=== PATIENT | female | born 2000 | race African-American/Black ===

== ENCOUNTER 2023-02-24 00:18 | Observation (INO) | payer OTHER, SELFPAY ==
--- NOTE | 2023-02-24 00:18 | OBADM ---
This patient, Eli Gutierres, admitted to the OB room Labor/Delivery/Recovery 106 for observation. Patient/family oriented to hospital policies and general routines including ID bracelet, bed and alarms, visiting hours, pain management, procedures, bathroom and other care routines, personal items, smoking policy, room service/diet, and visiting hours. Patient/Family are encouraged to report perceived risks to care and to ask questions if they do not understand what they are told or what they should do.
[2023-02-24 00:40] VITALS: BMI 34.2
--- NOTE | 2023-03-23 18:10 | PM.OBTRLD ---
OB - Triage/Final Diagnosis Visit Information Comments/Additional reasons for admission: I have assessed the risk for this patient, Eli Gutierres, and determined that she would benefit from observation care. Final Diagnosis (1) contractions: Code(s): O47.00 - False labor before 37 completed weeks of gestation, unspecified trimester Status: Acute
== END 2023-02-24 02:30 | disposition home or self-care (01) ==
PROVIDERS: Admitting Provider Obstetrics & Gynecology; Visit Provider Obstetrics & Gynecology
DX: O47.1 False labor at or after 37 completed weeks of gestation (principal); Z3A.37 37 weeks gestation of pregnancy
CPT/HCPCS: 84112; G0378; G0379

== ENCOUNTER 2023-03-04 16:06 | Inpatient (IN) | payer OTHER, SELFPAY ==
[2023-03-04] VITALS (11 sets, daily range): BP systolic 124–175; BP diastolic 63–121; PULSE 77–100; RESP 18; TEMP 36.6–36.7; BMI 35.9
[2023-03-04] MEDS: OXYTOCIN 30 UNITS/NS 500 ML 30 UNITS/500 ML BAG 125 UNITS IV CONT (16:34)
--- NOTE | 2023-03-04 16:43 | WPDOBADMIT ---
Obstetrics - Admit Note Admission Note: 22 y/o arrived via ambulance and was found to be completely dilated. SROM occoured shortly after my arrival. record reviewed. No pertinent additions to the history and/or any subsequent changes in the physical findings that are not consistent with the expected course of the were found. Additions to the history and/or subsequent changes in the physical findings follow. None.
--- NOTE | 2023-03-04 16:43 | PM.OBPRVD ---
OB - Delivery Note Procedure Delivery date: 03/04/23 Procedure: Events: Intrauterine Growth Restriction (IUGR) Induction method: None Delivery monitor: None Route of delivery: Episiotomy description: None Laceration Description: None Anesthesia type: None Narrative: Arrived via ambulance and was completely dilated. SROM occurred shortly after arrival. Pushed effectively and delivered spontaneously. Mother and baby in stable condition. Cord gasses collected and handed off to staff. Baby Date of : 03/04/23 Time of : 16:29 Weeks of gestation at delivery: 38 presentation: vertex position: Left Occiput Anterior Placenta delivery description: Spontaneous Cord Vessel Description: 3 Vessels
[2023-03-04] MEDS: IBUPROFEN 600 MG TABLET PO (17:10)
[2023-03-04 17:13] LABS: Basophils Percent Auto 0.2 % (0.2-1.2); Eosinophils Percent Auto 0.1 % (0-4.4); Hemoglobin 10.6 g/dL (12.0-15.0); Immature Granulocyte Absolute 0.08 K/mm3 (0.00-0.031); Immature Granulocyte Percent A 0.5 % (0-0.5); Lymphocytes Absolute Auto 1.34 K/mm3 (0.9-3.2); Lymphocytes Percent Auto 9.1 % (18.3-44.2); Mean Corpuscular HGB Conc 32.1 g/dl (32-36); Mean Corpuscular Hemoglobin 26.1 pg (26-34); Mean Corpuscular Volume 81.3 fl (80-100); Mean Platelet Volume 10.4 fl (7.4-10.4); Monocytes Absolute Auto 1.4 K/mm3 (0.1-0.6); Monocytes Percent Auto 9.5 % (2.6-8.5); Neutrophils Absolute Auto 11.8 K/mm3 (1.3-6.7); Neutrophils Percent Auto 80.6 % (45.5-73.1); Platelet Count Result 338 k/mm3 (150-375); Red Blood Count 4.06 M/mm3 (4.2-5.4); Red Cell Distribution Width 14.8 % (11.5-14.5); White Blood Count 14.7 K/mm3 (4.5-10.0)
--- NOTE | 2023-03-04 18:55 | OBPPTRN ---
Patient transferred to post room #283 via W/C. Support person present. Oriented to unit, room, information board, rooming in, admission packet and security measures. Patient verbalizes understanding.
[2023-03-05] MEDS: IBUPROFEN 600 MG TABLET PO ×3 (02:55→23:05)
[2023-03-05 05:37] LABS: Hematocrit 30.2 % (37.0-47.0); Hemoglobin 9.8 g/dL (12.0-15.0)
[2023-03-05 07:40] VITALS: BP 120/66; PULSE 89; RESP 17; TEMP 37; O2SAT 99
--- NOTE | 2023-03-05 07:40 | P.PNOB_ITS ---
OB - PN: Subj Subjective Date/time seen: 03/05/23 07:40 s/p vaginal delivery day 1 OB - PN: Obj Data Labs 03/05/23 04:12 Labs: Laboratory Results - last 24 hr 03/04/23 03/04/23 03/05/23 17:03 17:03 04:12 WBC 14.7 H RBC 4.06 L Hgb 10.6 L 9.8 L Hct 33.0 L 30.2 L MCV 81.3 MCH 26.1 MCHC 32.1 RDW 14.8 H Plt Count 338 MPV 10.4 Immature Gran % (Auto) 0.5 Neut % (Auto) 80.6 H Lymph % (Auto) 9.[address] [place] % (Auto) 9.5 H Eos % (Auto) 0.1 Baso % (Auto) 0.2 Lymph # (Auto) 1.34 [place] # (Auto) 1.4 H Eos # (Auto) 0.0 Baso # (Auto) 0.0 Abs Immat Gran (auto) 0.08 H Absolute Neuts (auto) 11.8 H Absolute Nucleated RBC 0.0 Nucleated RBC % 0.0 Blood Type AB Positive Antibody Screen Negative OB - PN A/P Plan day: 1 Plan: routine care Time Spent With Patient Time: Total time spent is greater than 50% in coordination of care (as documented) at patient's floor/unit and/or counseling patient: Review of Systems Review of Systems: All systems reviewed & are unremarkable except as noted in HPI and below Exam Const: General: cooperative and healthy appearing
[2023-03-05 08:00] VITALS: PULSE 89; RESP 17; O2SAT 99
[2023-03-05] MEDS: DOCUSATE SODIUM 100 MG CAPSULE PO ×2 (09:21→17:39)
[2023-03-05] MEDS: POLYSACCHARIDE IRON COMPLEX 150 MG CAPSULE PO ×2 (09:21→17:39)
--- NOTE | 2023-03-05 09:26 | PC.NURSE ---
On 03/05/23, the student, Radames Townsend, provided care and completed [facility] documentation on this patient. I have reviewed the student's documentation and agree with the findings.
[2023-03-05 12:23] VITALS: BP 126/73; PULSE 75; RESP 16; TEMP 36.7; O2SAT 99
[2023-03-05 12:33] LABS: Rapid Plasma Reagin Non-Reactive (NonReactive)
[2023-03-05 18:45] VITALS: BP 123/79; PULSE 86; RESP 16; TEMP 36.9; O2SAT 98
[2023-03-06 07:25] VITALS: BP 120/62; PULSE 90; RESP 16; TEMP 37.2; O2SAT 98
--- NOTE | 2023-03-06 08:18 | PM.OBPNVD ---
OB - PN: Subj Subjective Date/time seen: 03/06/23 08:18 Patient comments: no complaints baby status: doing well OB - PN: Obj Data Labs 03/05/23 04:12 Labs: Laboratory Results - last 24 hr 03/04/23 17:03 RPR Non-reactive OB - PN A/P Plan day: 2 Plan: routine care and discharge home (F/U in 4 weeks) Time Spent With Patient Time: Total time spent is greater than 50% in coordination of care (as documented) at patient's floor/unit and/or counseling patient: Time with patient: less than 15 minutes Review of Systems Review of Systems: All systems reviewed & are unremarkable except as noted in HPI and below Exam Narrative: Fundus firm and vaginal flow controlled. No lower ext redness, warmth, or edema. Negative homans. Const: General: comfortable Chest: Breast/axilla inspection: normal inspection of the breasts Resp: Effort & Inspection: normal respiratory effort Cardio: Rate: regular rate GI: GI Palp: Yes Soft to palpation Psych: Appearance: grossly normal Affect: normal affect Attitude: cooperative Thought content: Yes Normal thought content present Judgement: Good judgement present (Psych)
--- NOTE | 2023-03-06 08:20 | PM.OBDSVD ---
DS: Admitting Diagnosis Discharge Date 03/06/23 Admitting Diagnosis Labor OB - DS: Summary OB Procedures : None OB Procedures Intrapartum: Spontaneous Vag Delivery OB Procedures: : None Time Spent with Patient Time attestation: Total time spent providing and/or coordinating discharge services: DS: Data Data Completed and Pending Pending studies at discharge: Pending at discharge 03/04/23 16:35 Surgical [PTH] Routine Labs on day of discharge: Labs from last 24 hours 03/04/23 17:03 RPR Non-reactive Discharge Plan Discharge Attending physician on discharge: Mariluz Zayas Discharging Clinician: Mariluz Zayas Patient Disposition: Home, Self-Care Activity: pelvic rest Diet: as tolerated Patient Instructions: Antibiotic Form Stand Alone Forms: General Discharge Information Follow-up/Referrals: Mariluz Zayas CNM [Primary Care Provider] - Discharge Medications: New polysaccharide iron complex 150 mg iron Capsule 150 mg PO DAILY Qty: 30 0RF Continued PNV [id number] fumarate-FA [] 28 mg iron- 800 mcg Tablet 1 tablet PO DAILY Date of admission: 03/04/23 16:06 Primary Care Provider: Mariluz Zayas Admitting Provider: Kerrie Price Attending physician on admission: Kerrie Price Condition: Stable
[2023-03-06] MEDS: POLYSACCHARIDE IRON COMPLEX 150 MG CAPSULE PO (08:40)
[2023-03-06] MEDS: DOCUSATE SODIUM 100 MG CAPSULE PO (08:41)
[2023-03-06] MEDS: IBUPROFEN 600 MG TABLET PO (08:41)
--- NOTE | 2023-03-06 12:30 | PC.NURSE ---
Patient viewed the discharge video Mother & Baby Care, The First Two Weeks . Patient was given the opportunity and encouraged to ask questions. Patient verbalized understanding of information shared and has been given the mother/baby guide for home reference.
[2023-03-07 11:19] VITALS: BP 120/68; PULSE 82; RESP 18; TEMP 37.1; O2SAT 100
== END 2023-03-06 13:20 | disposition home or self-care (01) | DRG 560 ==
LOC: ANHLDR 16:29 → ANHOB2 19:06
PROVIDERS: Admitting Provider Obstetrics & Gynecology; PCP Advanced Practice Midwife; Visit Provider Obstetrics & Gynecology
DX: O36.5930 Maternal care for other known or suspected poor fetal growth, third trimester, not applicable or unspecified (principal); Z37.0 Single live birth; Z3A.38 38 weeks gestation of pregnancy
CPT/HCPCS: 36415; 85014; 85018; 85025; 86592; 86850; 86900; 86901; 88307; A9270; J2590